=== PATIENT | male | born 1950 | race Caucasian/White ===

== ENCOUNTER → 2024-08-07 | Outpatient (CLI) | payer MEDICARE ==
--- NOTE | 2024-08-07 22:09 | MR ---
EXAMINATION TYPE: MR Prostate wo/w con DATE OF EXAM: 08/07/2024 9:58 AM COMPARISON: None. CLINICAL INDICATION: Male, 74 years old with history of R97.20 ELEVATED PSA; Elevated PSA TECHNIQUE: Multi-planar, multi-sequence imaging of the pelvis is performed prior to and following the uncomplicated administration of bolus intravenous gadolinium. IV Contrast: 8 mL Gadobutrol Interpretive Criteria: PI-RADS v2.1 SERUM PSA: =9.88, =10.60 SURGICAL PATHOLOGY: No data available. FINDINGS: Prostatic dimensions: 4.9 x 5.6 x 3.4 cm. "Bullet" Volume:61.06 (PSA density=0.17 ng/mL/mL) CENTRAL GLAND (Central and Transition Zones/CZ+TZ): Multiple bilateral, heterogenous appearing hypertrophic stromal nodules, without suspicious lesion. M edian lobe hypertrophy with protrusion into the base of the bladder. (PI-RADS 2) PERIPHERAL ZONE (PZ): Low T2 signal lesion series 501 image 17 measuring 6 mm with some increased vascularity, the DWI sign al may be fractionally higher signal compared to the surrounding tissue with low ADC signal. Noted (P I-RADS 3) SEMINAL VESICLES (SV): Symmetric and unremarkable. PERIPROSTATIC TISSUES: Unremarkable. LYMPH NODES: No enlarged pelvic lymph node. REMAINING PELVIS: Bladder wall is within normal limits given distention. No abnormal free or organized intrapelvic fluid collection. No pathologic bowel dilation or mural thickening. No hernia visualized OSSEOUS STRUCTURES: No suspicious osseous abnormality. IMPRESSION: 1. PI-RADS 3 lesion left peripheral zone mid gland/apex posteriorly measuring 6 mm. Tissue sampling r ecommended. 2. Moderate BPH, estimated gland volume 61.06 mL. 3. No suspicious osseous lesion. No lymphadenopathy. No evidence of prostate adenocarcinoma involving the periprostatic tissues. [facility], , 08/07/2024 10:07 PM
== END | disposition home or self-care (01) ==
LOC: RADMRIMAIN 08:26
PROVIDERS: ATTEND Urology
DX: N40.0 Benign prostatic hyperplasia without lower urinary tract symptoms (principal); R97.20 Elevated prostate specific antigen [PSA]
CPT/HCPCS: 72197; A9585

== ENCOUNTER → 2024-09-13 | Outpatient (CLI) | payer MEDICARE ==
[2024-09-13 15:13] LABS: Basophils # (A) 0.09 X 10*3/uL (0.00-0.10); Basophils % (A) 1.3 %; Eosinophils # (A) 0.22 X 10*3/uL (0.04-0.35); Eosinophils % (A) 3.1 %; HCT 37.7 % (39.6-50.0); HGB 13.3 g/dL (13.0-17.0); Lymphocytes # (A) 0.94 X 10*3/uL (0.90-5.00); Lymphocytes % (A) 13.2 %; MCH 31.1 pg (27.0-32.0); MCHC 35.3 g/dL (32.0-37.0); MCV 88.1 FL (80.0-97.0); Mean Platelet Volume 8.8 FL (9.5-12.2); Monocytes # (A) 0.69 X 10*3/uL (0.20-1.00); Monocytes % (A) 9.7 %; NRBC Per 100 WBC 0 X 10*3/uL (0.00-0.01); Neutrophils # (A) 5.15 X 10*3/uL (1.80-7.70); Neutrophils % (A) 72.1 %; Platelet Count 233 X 10*3/uL (140-440); RBC 4.28 X 10*6/uL (4.40-5.60); RDW 11.9 % (11.5-14.5); WBC 7.13 X 10*3/uL (4.50-10.00)
[2024-09-13 15:27] LABS: BUN/Creat Ratio 17.67 Ratio (12.00-20.00); Blood Urea Nitrogen 10.6 mg/dL (9.0-27.0); Calcium 9.4 mg/dL (8.7-10.3); Carbon Dioxide 27.5 mmol/L (21.6-31.8); Chloride 96 mmol/L (96-109); Glucose 295 mg/dL (70-110); Potassium 4.2 mmol/L (3.5-5.5); Sodium 135 mmol/L (135-145)
[2024-09-13 17:47] LABS: Appearance,Urine Clear (Clear); Bilirubin,Urine Negative (Negative); Blood,Urine Negative (Negative); Color,Urine Dark Yellow (Yellow); Ketones,Urine Negative (Negative); Nitrite,Urine Negative (Negative); Specific Gravity,Urine 1.027 (1.001-1.030)
== END | disposition home or self-care (01) ==
LOC: LABWHC1 09:10
PROVIDERS: ATTEND Urology
DX: Z01.812 Encounter for preprocedural laboratory examination (principal); N40.1 Benign prostatic hyperplasia with lower urinary tract symptoms; R97.20 Elevated prostate specific antigen [PSA]
CPT/HCPCS: 80048; 81003; 85025; 87086

== ENCOUNTER → 2024-11-14 | Outpatient (CLI) | payer MEDICARE ==
[2024-11-14 11:56] LABS: Appearance,Urine Clear (Clear); Bilirubin,Urine Negative (Negative); Blood,Urine Negative (Negative); Color,Urine Yellow; Glucose,Urine (UA) 3+ (Negative); Ketones,Urine Negative (Negative); Leukocyte Esterase,Urine Negative (Negative); Nitrite,Urine Negative (Negative); PH, Urine 7.5 (5.0-8.0); Protein,Urine Trace (Negative); Specific Gravity,Urine 1.017 (1.001-1.035); Urobilinogen,Urine <2.0 mg/dL (<2.0)
[2024-11-14 14:55] LABS: Basophils # (A) 0.04 X 10*3/uL (0.00-0.10); Basophils % (A) 0.5 %; Eosinophils # (A) 0.12 X 10*3/uL (0.04-0.35); Eosinophils % (A) 1.5 %; HCT 39.8 % (39.6-50.0); Lymphocytes % (A) 11.2 %; MCH 31.4 pg (27.0-32.0); MCHC 35.2 g/dL (32.0-37.0); MCV 89.2 FL (80.0-97.0); Mean Platelet Volume 8.8 FL (9.5-12.2); Monocytes # (A) 0.82 X 10*3/uL (0.20-1.00); Monocytes % (A) 10.2 %; NRBC Per 100 WBC 0 X 10*3/uL (0.00-0.01); Neutrophils # (A) 6.15 X 10*3/uL (1.80-7.70); Neutrophils % (A) 76.2 %; Platelet Count 262 X 10*3/uL (140-440); RBC 4.46 X 10*6/uL (4.40-5.60); RDW 11.6 % (11.5-14.5); WBC 8.06 X 10*3/uL (4.50-10.00)
[2024-11-14 18:47] LABS: BUN/Creat Ratio 17.17 Ratio (12.00-20.00); Blood Urea Nitrogen 10.3 mg/dL (9.0-27.0); Calcium 9.9 mg/dL (8.7-10.3); Carbon Dioxide 30.2 mmol/L (21.6-31.8); Chloride 93 mmol/L (96-109); Glucose 188 mg/dL (70-110); Potassium 4.7 mmol/L (3.5-5.5); Sodium 133 mmol/L (135-145)
== END | disposition home or self-care (01) ==
LOC: LABWHC1 10:32
PROVIDERS: ATTEND Urology
DX: Z01.812 Encounter for preprocedural laboratory examination (principal); R97.20 Elevated prostate specific antigen [PSA]
CPT/HCPCS: 36415; 80048; 81003; 85025; 87086

== ENCOUNTER 2024-11-19 11:12 | Day surgery (SDC) | payer MEDICARE ==
[2024-11-15 14:38] VITALS: BMI 28.8
--- NOTE | 2024-11-18 07:49 | P.HPIHPCON ---
History of Present Illness H&P Date: 11/18/24 Chief Complaint: Elevated PSA, microscopic hematuria This is a 74-year-old male with history of elevated PSA at 10.6, MRI showed evidence of a PI-RADS 3 lesion along the left apex. Discussed with him given this finding I do recommend proceeding with an MRI fusion biopsy of the prostate. Of note also he has evidence of microscopic hematuria, discussed we will do a flexible cystoscopy at the same setting aware of the risk which includes but not limited to bleeding, and infection. He understood all the risk and agreed to proceed Consent for Procedure: I have explained the operation/procedure to the patient, including the risks, benefits, side effects, alternative therapies (including not receiving the proposed treatment or service), the likelihood of the patient achieving his/her goals, and potential recuperation problems for the procedure/sedation/analgesia, as well as any blood products, if indicated. I also explained to the patient the risks, benefits and side effects of the alternatives, as well as the risks related to not receiving the proposed procedure, care, treatment, or services. Past Medical History Past Medical History: Cancer, Diabetes Mellitus, Hyperlipidemia, Hypertension Additional Past Medical History / Comment(s): Hx skin cancer. "Spot on prostate." History of Any Multi-Drug Resistant Organisms: None Reported Additional Past Surgical History / Comment(s): Bilateral cataract surgery, colonoscopy. Past Anesthesia/Blood Transfusion Reactions: No Reported Reaction Additional Past Anesthesia/Blood Transfusion Reaction / Comment(s): PONV with colonoscopy once. Past Psychological History: No Psychological Hx Reported Smoking Status: Never smoker Past Alcohol Use History: Rare Past Drug Use History: None Reported Medications and Allergies Home Medications Medication Instructions Recorded Confirmed Type Atorvastatin [Lipitor] 20 mg PO DAILY 11/15/24 11/15/24 History Escitalopram [Lexapro] 20 mg PO QAM 11/15/24 11/15/24 History Insulin Glargine,Hum.rec.anlog 40 unit SQ QAM 11/15/24 11/15/24 History [Basaglar Kwikpen U-100] Lisinopril-Hctz 20-12.5 mg 1 tab PO QAM 11/15/24 11/15/24 History [Zestoretic 20-12.5] Semaglutide [Ozempic] 2 mg SQ BARRIOS 11/15/24 11/15/24 History metFORMIN HCL 500 mg PO TID 11/15/24 11/15/24 History Allergies Allergy/AdvReac Type Severity Reaction Status Date / Time No Known Allergies Allergy Verified 11/15/24 11:09 Surgical - Exam - General no distress, no pain - Eyes normal ocular movement, no pale - ENT normal nares, normal mucosa - Respiratory normal expansion, normal respiratory effort - Abdomen Abdomen: soft, non tender - Psychiatric oriented to time, oriented to person, oriented to place, speech is normal Assessment and Plan Assessment: OR for MRI fusion biopsy of the prostate, cystoscopy
[~2024-11-19 11:12] MED LIST: LACTATED RINGERS 1,000 ML IV SCH
[2024-11-19] MEDS: IV FLUID CONTINUATION 1,000 ML IV ONE (13:30)
[2024-11-19] MEDS: GENTAMICIN 40 MG/ML 2 ML VIAL IM PRN (13:31)
[2024-11-19 13:33] LABS: Glucose,Whole Blood 141 mg/dL (70-110)
[2024-11-19] MEDS: ONDANSETRON 4 MG/2 ML VIAL IVP STA (13:45)
[2024-11-19] MEDS ORDERED: MIDAZOLAM 2 MG/2 ML VIAL ONE (14:24)
[2024-11-19] MEDS ORDERED: GLYCOPYRROLATE 0.2 MG/ML 2 ML VIAL ONE (14:24)
[2024-11-19] MEDS ORDERED: DEXAMETHASONE SOD PHOSPHATE 4 MG/ML 1 ML VIAL ONE (14:24)
[2024-11-19] MEDS ORDERED: PROPOFOL 10 MG/ML 20 ML VIAL IV ONE (14:24)
[2024-11-19] MEDS ORDERED: LIDOCAINE 1% INJ 10MG/ML (20 ML MDV) ONE (14:24)
[2024-11-19] MEDS ORDERED: KETAMINE HCL IN 0.9 % NACL 50 MG/5 ML SYRINGE ONE (14:24)
[2024-11-19 15:23] VITALS: TEMP 97.2
[2024-11-19 15:53] VITALS: RESP 16
[2024-11-19 16:06] VITALS: BP 160/83; PULSE 82
--- NOTE | 2024-11-19 16:47 | P.OP ---
Date of Procedure: 11/19/24 Preoperative Diagnosis: Elevated PSA, microscopic hematuria Postoperative Diagnosis: Same Procedure(s) Performed: MRI fusion biopsy of the prostate, cystoscopy Implants: None Anesthesia: MAC Surgeon: Chris Cochran Estimated Blood Loss (ml): 1 Pathology: other (Prostate biopsies) Condition: stable Disposition: PACU Indications for Procedure: This is a 74-year-old male with history of elevated PSA at 10.6, MRI showed evidence of a PI-RADS 3 lesion along the left apex. Discussed with him given this finding I do recommend proceeding with an MRI fusion biopsy of the prostate. Of note also he has evidence of microscopic hematuria, discussed we will do a flexible cystoscopy at the same setting aware of the risk which includes but not limited to bleeding, and infection. He understood all the risk and agreed to proceed Operative Findings: Normal cysto Description of Procedure: The patient was taken to the operating room and placed in the left lateral decubitus position. The [employer] transrectal ultrasound probe was placed intrarectally. It was then placed within the stand of the [employer] MRI/TRUS Fusion for Prostate Biopsy system. The prostate was imaged in both the axial and sagittal planes. Using the Biopsy gun, 4 biopsies were obtained from the target lesion, there were was one lesions, . The remaining 12 biopsies of the peripheral zone were obtained utilizing a standard template. Once the procedure was completed, the ultrasound probe was removed. Next attention was carried to the flexible cystoscope. The patient was placed in a supine position. Penis was prepped and draped in sterile fashion. Next a flexible cystoscope was inserted per urethra, cystoscopy was performed showed no abnormality within the bladder. Patient's prostate was mildly enlarged but nonocclusive. There was no abnormality along the prostatic urethra or within the urethra. The patient tolerated the procedure well was taken to the recovery room stable condition.
== END 2024-11-19 16:23 | disposition home or self-care (01) ==
LOC: OR 11:12
PROVIDERS: ATTEND Urology
DX: C61 Malignant neoplasm of prostate (principal); N40.1 Benign prostatic hyperplasia with lower urinary tract symptoms; R31.29 Other microscopic hematuria; E11.9 Type 2 diabetes mellitus without complications; E78.5 Hyperlipidemia, unspecified; I10 Essential (primary) hypertension; Z79.84 Long term (current) use of oral hypoglycemic drugs
CPT/HCPCS: 88305; 52000; 55700; J2250; J1580; J1100; J2405; J2003; J2704; J1596

== ENCOUNTER → 2024-12-31 | Outpatient (CLI) | payer MEDICARE ==
[2024-12-31 14:46] LABS: Basophils # (A) 0.04 X 10*3/uL (0.00-0.10); Basophils % (A) 0.7 %; Eosinophils % (A) 3.4 %; HCT 37.6 % (39.6-50.0); Lymphocytes # (A) 0.72 X 10*3/uL (0.90-5.00); Lymphocytes % (A) 12.1 %; MCHC 34.6 g/dL (32.0-37.0); MCV 89.5 FL (80.0-97.0); Mean Platelet Volume 8.8 FL (9.5-12.2); Monocytes # (A) 0.63 X 10*3/uL (0.20-1.00); Monocytes % (A) 10.6 %; NRBC Per 100 WBC 0 X 10*3/uL (0.00-0.01); Neutrophils # (A) 4.32 X 10*3/uL (1.80-7.70); Neutrophils % (A) 72.7 %; Platelet Count 239 X 10*3/uL (140-440); RDW 11.9 % (11.5-14.5); WBC 5.94 X 10*3/uL (4.50-10.00)
[2024-12-31 15:41] LABS: BUN/Creat Ratio 16.83 Ratio (12.00-20.00); Blood Urea Nitrogen 10.1 mg/dL (9.0-27.0); Calcium 9.1 mg/dL (8.7-10.3); Carbon Dioxide 25.4 mmol/L (21.6-31.8); Chloride 95 mmol/L (96-109); Glucose 276 mg/dL (70-110); Potassium 4.1 mmol/L (3.5-5.5); Sodium 133 mmol/L (135-145)
[2024-12-31 16:29] LABS: Appearance,Urine Clear (Clear); Bilirubin,Urine Negative (Negative); Blood,Urine Negative (Negative); Color,Urine Dark Yellow (Yellow); Ketones,Urine Negative (Negative); Nitrite,Urine Negative (Negative)
== END | disposition home or self-care (01) ==
LOC: LABWHC1 09:10
PROVIDERS: ATTEND Urology
DX: Z01.812 Encounter for preprocedural laboratory examination (principal); C61 Malignant neoplasm of prostate
CPT/HCPCS: 36415; 80048; 81003; 85025

== ENCOUNTER 2025-01-02 06:48 | Day surgery (SDC) | payer MEDICARE ==
--- NOTE | 2024-12-31 17:14 | P.HPIHPCON ---
History of Present Illness H&P Date: 12/31/24 Chief Complaint: prostate cancer This is a 74-year-old male with history of [place] 7(3+4) prostate cancer. Of note patient also has evidence of incomplete bladder emptying, and storage symptoms with significant urgency. Underwent urodynamic which showed evidence of incomplete bladder emptying, with multiple uninhibited detrusor contraction with incontinence. Of note he also had evidence of diminished flow but there was adequate detrusor function. MRI showed evidence of an enlarged prostate with enlarged median lobe with intravesical extension. Discussed with him his bladder pathology is most likely secondary to his enlarged prostate complicated by his diabetes history. Option of radiation therapy versus robotic radical prostatectomy was discussed with him in details. Risk and benefit of each approach were discussed. Discussed with robotic prostatectomy might address his urinary symptoms and his prostate cancer, but did discuss he might require additional treatments for his storage symptoms postoperatively. Alternative of radiation was also discussed. He agreed to proceed with a robotic radical prostatectomy, he is aware of the risk which include but not limited to bleeding, infection, erectile dysfunction, urinary incontinence, injury to nearb y organs. Risk of cancer recurrence and need for additional treatments was discussed. Discussed given his finding on urodynamics with the potential that he may need additional therapy to address his bladder. He understood all the risk and agreed to proceed Consent for Procedure: I have explained the operation/procedure to the patient, including the risks, benefits, side effects, alternative therapies (including not receiving the proposed treatment or service), the likelihood of the patient achieving his/her goals, and potential recuperation problems for the procedure/sedation/analgesia, as well as any blood products, if indicated. I also explained to the patient the risks, benefits and side effects of the alternatives, as well as the risks related to not receiving the proposed procedure, care, treatment, or services. Past Medical History Past Medical History: Cancer, Diabetes Mellitus, Hyperlipidemia, Hypertension Additional Past Medical History / Comment(s): Hx skin cancer. "Spot on prostate." History of Any Multi-Drug Resistant Organisms: None Reported Additional Past Surgical History / Comment(s): Bilateral cataract surgery, colonoscopy. Past Anesthesia/Blood Transfusion Reactions: No Reported Reaction Additional Past Anesthesia/Blood Transfusion Reaction / Comment(s): PONV with colonoscopy once. Past Psychological History: No Psychological Hx Reported Smoking Status: Never smoker Past Alcohol Use History: Rare Past Drug Use History: None Reported Medications and Allergies Home Medications Medication Instructions Recorded Confirmed Type Atorvastatin [Lipitor] 20 mg PO DAILY 11/15/24 11/19/24 History Escitalopram [Lexapro] 20 mg PO QAM 11/15/24 11/19/24 History Insulin Glargine,Hum.rec.anlog 40 unit SQ QAM 11/15/24 11/19/24 History [Basaglar Kwikpen U-100] Lisinopril-Hctz 20-12.5 mg 1 tab PO QAM 11/15/24 11/19/24 History [Zestoretic 20-12.5] Semaglutide [Ozempic] 2 mg SQ BARRIOS 11/15/24 11/19/24 History metFORMIN HCL 500 mg PO TID 11/15/24 11/19/24 History Aspirin 81 mg PO DAILY 11/19/24 11/19/24 History Allergies Allergy/AdvReac Type Severity Reaction Status Date / Time No Known Allergies Allergy Verified 11/19/24 13:06 Surgical - Exam - General no distress, no pain - Eyes normal ocular movement, no pale - ENT normal nares, normal mucosa - Respiratory normal expansion, normal respiratory effort - Abdomen Abdomen: soft, non tender - Psychiatric oriented to time, oriented to person, oriented to place Assessment and Plan Assessment: OR for robotic radical prostatectomy with bilateral pelvic lymph node dissection
[2025-01-02] MEDS ORDERED: HYDROmorphone 0.5 MG/0.5 ML SYRINGE IVP PRN (07:00)
[2025-01-02] MEDS: IV FLUID CONTINUATION 1,000 ML IV ONE ×2 (07:17→08:40)
[2025-01-02 08:07] LABS: Glucose,Whole Blood 125 mg/dL (70-110)
[2025-01-02] MEDS: fentaNYL (PF) 50 MCG/ML 2 ML AMP IVP STA (08:21)
[2025-01-02] MEDS: MIDAZOLAM 2 MG/2 ML VIAL IV ONE (08:21)
[2025-01-02] MEDS: LACTATED RINGERS 1,000 ML IV SCH (08:36)
[2025-01-02] MEDS: ONDANSETRON 4 MG/2 ML VIAL IVP ONE (08:37)
[2025-01-02] MEDS: DEXAMETHASONE SOD PHOSPHATE 4 MG/ML 1 ML VIAL IV ONE (08:37)
[2025-01-02] MEDS: HEPARIN SODIUM,PORCINE 5,000 UNIT/ML 1 ML VIAL SQ PRN (08:39)
[2025-01-02] MEDS: LACTATED RINGERS 1,000 ML IV ONE ×2 (08:40→11:05)
--- NOTE | 2025-01-02 08:55 | P.ANPRN ---
Procedure Note - Anesthesia - Nerve Block Performed Bilateral Erector Spinae Single Time Out Performed: Yes ([id number]) Date of Procedure: 01/02/25 Procedure Start Time: : Procedure Stop Time: : Location of Patient: PreOp Indication: Acute Post-Operative Pain, Requested by Surgeon Specifically requested for management of pain by : Chris Cochran Sedation Type: Sedate with meaningful contact maintained Preparation: Sterile Prep Position: Sitting Catheter: None Needle Types: Pajunk Needle Gauge: 21 Ultrasound used to visualize needle placement: Yes Ultrasound used to observe medication spread: Yes Injectate: 0.5% Ropivacaine (see comment for volume) (15cc+10cc nacl pf+decadron 4mg each side) Blood Aspirated: No Pain Paresthesia on Injection Noted: No Resistance on Injection: Normal Image Stored and Saved: Yes Events: Uneventful and Well Tolerated
[2025-01-02] MEDS ORDERED: ONDANSETRON 4 MG/2 ML VIAL IVP PRN (09:27)
[2025-01-02] MEDS ORDERED: HYDROmorphone 1 MG/ML 1 ML SYRINGE IVP PRN (09:27)
[2025-01-02] MEDS ORDERED: NEOSTIGMINE 1 MG/ML 10 ML VIAL ONE (09:28)
[2025-01-02] MEDS ORDERED: SODIUM CHLORIDE 0.9% (PF) 10 ML VIAL ONE (09:28)
[2025-01-02] MEDS ORDERED: SUCCINYLCHOLINE CHLORIDE 200 MG/10 ML VIAL IV ONE (09:28)
[2025-01-02] MEDS ORDERED: PROPOFOL 10 MG/ML 20 ML VIAL IV ONE (09:28)
[2025-01-02] MEDS ORDERED: fentaNYL (PF) 50 MCG/ML 2 ML AMP ONE (09:28)
[2025-01-02] MEDS ORDERED: GLYCOPYRROLATE 0.2 MG/ML 2 ML VIAL ONE (09:28)
[2025-01-02] MEDS ORDERED: ePHEDrine 50 MG/ML 1 ML VIAL ONE (09:28)
[2025-01-02] MEDS ORDERED: DEXAMETHASONE SOD PHOSPHATE 4 MG/ML 1 ML VIAL ONE (09:28)
[2025-01-02] MEDS ORDERED: LIDOCAINE 1% INJ 10MG/ML (20 ML MDV) ONE (09:28)
[2025-01-02] MEDS ORDERED: hydrALAZINE HCL 20 MG/ML 1 ML VIAL ONE (09:28)
[2025-01-02] MEDS ORDERED: MIDAZOLAM 2 MG/2 ML VIAL ONE (09:28)
[2025-01-02] MEDS ORDERED: INSULIN REGULAR 100 UNIT/ML VIAL (IV) ONE (09:28)
[2025-01-02] MEDS ORDERED: ROPIVACAINE 5 MG/ML 30 ML VIAL ONE (09:28)
[2025-01-02] MEDS ORDERED: ROCURONIUM 10 MG/ML (5 ML VIAL) IV ONE (09:28)
[2025-01-02] MEDS ORDERED: HYDROmorphone (PF) 1 MG/ML ONE (09:28)
[2025-01-02] MEDS ORDERED: HYDROcodone/APAP 5-325MG 1 EACH TAB PO PRN (09:30)
[2025-01-02] MEDS: ceFAZolin 2 GM in DEXTROSE 5% IN WATER 50 ML IVPB PRN (09:31)
[2025-01-02] MEDS: BUPIVACAINE (PF) 0.25% 30 ML VIAL SQ ONE (09:57)
[2025-01-02 12:58] LABS: Glucose,Whole Blood 230 mg/dL (70-110)
[2025-01-02 14:27] LABS: Glucose,Whole Blood 210 mg/dL (70-110)
--- NOTE | 2025-01-02 14:41 | P.OP ---
Date of Procedure: 01/02/25 Preoperative Diagnosis: Prostate cancer Postoperative Diagnosis: Same Procedure(s) Performed: Robotic radical prostatectomy with bilateral pelvic lymph node dissection Implants: none Anesthesia: LIVIAA Surgeon: Chris Cochran Estimated Blood Loss (ml): 100 Pathology: other (Prostate, bilateral seminal vesicle, bilateral pelvic lymph node, left base margin) Condition: stable Disposition: PACU Indications for Procedure: This is a 74-year-old male with history of [place] 7(3+4) prostate cancer. Of note patient also has evidence of incomplete bladder emptying, and storage symptoms with significant urgency. Underwent urodynamic which showed evidence o f incomplete bladder emptying, with multiple uninhibited detrusor contraction with incontinence. Of note he also had evidence of diminished flow but there was adequate detrusor function. MRI showed evidence of an enlarged prostate with enlarged median lobe with intravesical extension. Discussed with him his bladder pathology is most likely secondary to his enlarged prostate complicated by his diabetes history. Option of radiation therapy versus robotic radical prostatectomy was discussed with him in details. Risk and benefit of each approach were discussed. Discussed with robotic prostatectomy might address his urinary symptoms and his prostate cancer, but did discuss he might require additional treatments for his storage symptoms postoperatively. Alternative of radiation was also discussed. He agreed to proceed with a robotic radical prostatectomy, he is aware of the risk which include but not limited to bleeding, infection, erectile dysfunction, urinary incontinence, injury to nearby organs. Risk of cancer recurrence and need for additional treatments was discussed. Discussed given his finding on urodynamics with the potential that he may need additional therapy to address his bladder. He understood all the risk and agreed to proceed Description of Procedure: After preoperative antibiotics were started, the patient was taken to the operating room. Anesthesia was induced and the patient was placed in a supine position, with adequate padding of the pressure points, shoulders, back, legs and arms. He was then prepped and draped in the standard fashion. A critical pause was performed using two patient identifiers. A 16F rodrigez catheter was placed to gravity drainage. A pneumo-peritoneum was created with placement of a Veress needle to 20 mm Hg without complication, and a 8 Fr trocar was placed above the umbillicus. Under direct vision a 8mm robotic ports was placed lateral to each rectus slightly below the camera port. The left iliac fossa 8mm port was placed. The right investigative assistant right iliac fossa 12mm port and right paramedian 5mm portwere placed. After the patient was placed in the trendelenberg position, the robot was then docked to the 8mm robotic ports and then each robotic arm and tower was checked in relation to the patient's legs and hands to avoid inadvertent compression. The peritoneal cavity was inspected. An inverted U-shaped incision began laterally to the left medial umbilical ligament and extended high across the midline to the right umbilical ligament. The limbs of the "U" extended to the level of the vasa on both sides. We next developed the preperitoneal space and the space of Retzius. Cautery was used to dissected the bladder away from the prostate. After the anterior bladder neck was incised and the bladder entered the the posterior bladder neck was exposed and the ureteral orifces identified. The posterior bladder neck was then incised and dissected away from the prostate. The vas and the seminal vesicles were now exposed and dissected to their insertions into the prostate and were not spared. The posterior layer of the Denonvillier's fascia was incised to enter don the plane between prostate and perirectal fat. Each lateral pedicle was controlled with vessel sealer, no nerve preservation was performed. The puboprostatic ligament was incised where it inserted into the apex of the prostate and a plane between urethra and dorsal venous complex developed to expose the anterior urethral surface. The anterior wall of the urethra was transected with the cut setting a few millimeters distal to the apex of the prostate. The dorsal vein was ligated using 3-0 V lock bilateral obturator and external iliac lymph node packets were carefully dissected after careful visualization of the hypogastric artery and obturator nerve. There was careful attention paid to hemostasis with judicious use of cautery. The urethrovesical anastomosis was performed . the posterior denovillers was reapproximated using 3-0 V lock. A 6 and 6 inch 3-0 V-Lock suture was used to anastomose the urethra and bladder, starting at the 6:00 posterior position. Mucosa was secured in every stitch, to ensure a mucosa to mucosa anastomosis. The stitch was regularly cinched and the anastomosis tightened. Care was taken to not violate the ureteral orifices. The Rodrigez catheter was advanced, the bladder filled, and the anastomosis was tested, as described above. Anastomsis was watertight at 150 mL The periumbilical fascia was closed with 1-0-PDS suture in figure of eight fashion. All ports were closed with a subcuticular 4-0 monocryl and Dermabond. Sponge, instrument, and needle counts were correct at the end of the case x2. All specimens including prostate and lymph nodes were sent to pathology for diagnosis and will be available in a week. The patient tolerated the surgery well and without complication. He awoke without difficulty and was taken to the recovery room in stable condition
[2025-01-02] MEDS: metFORMIN 500 MG TAB PO SCH (16:13)
[2025-01-02] MEDS: SODIUM CHLORIDE 0.9% 1,000 ML IV SCH (16:13)
[2025-01-02] MEDS: KETOROLAC 15 MG/ML 1 ML VIAL IVP SCH (16:13)
[2025-01-02 16:45] LABS: Glucose,Whole Blood 198 mg/dL (70-110)
[2025-01-02 20:21] LABS: Glucose,Whole Blood 247 mg/dL (70-110)
[2025-01-02] MEDS: MELATONIN 5 MG TABLET PO PRN (21:24)
[2025-01-02] MEDS: LISINOPRIL-HCTZ 20-12.5 MG 1 EACH TAB PO SCH (21:24)
[2025-01-03 01:37] VITALS: TEMP 98.2
[2025-01-03 06:20] LABS: Glucose,Whole Blood 157 mg/dL (70-110)
[2025-01-03] MEDS: INSULIN GLARGINE (LANTUS) 100 UNIT/ML SYR SQ SCH (06:42)
[2025-01-03 07:20] VITALS: BP 122/63; PULSE 74; RESP 15
--- NOTE | 2025-01-03 07:23 | P.DS ---
Providers Attending physician: Chris Cochran MD Primary care physician: Jeni Raya [facility] Course: 74 yo male who underwent a RALP by Dr Cochran yesterday without issues. He did well overnight. His urine is clear. His is not having notable pain. His VSS. He will be d/cd home. He will go home with the catheter. He will fu with Dr Cochran in about 1 week. His condition is good. Patient Condition at Discharge: Good Plan - Discharge Summary Discharge Rx Participant: Yes New Discharge Prescriptions: New HYDROcodone/APAP 5-325MG [[place] 5-325] 1 tab PO Q4HR PRN #10 tab PRN Reason: Pain No Action metFORMIN HCL 500 mg PO TID Insulin Glargine,Hum.rec.anlog [Basaglar Kwikpen U-100] 40 unit SQ QAM Lisinopril-Hctz 20-12.5 mg [Zestoretic 20-12.5] 1 tab PO BID Escitalopram [Lexapro] 20 mg PO QAM Atorvastatin [Lipitor] 20 mg PO DAILY Semaglutide [Ozempic] 2 mg SQ BARRIOS Aspirin 81 mg PO DAILY Discharge Medication List Atorvastatin [Lipitor] 20 mg PO DAILY 11/15/24 [History] Escitalopram [Lexapro] 20 mg PO QAM 11/15/24 [History] Insulin Glargine,Hum.rec.anlog [Basaglar Kwikpen U-100] 40 unit SQ QAM 11/15/24 [History] Lisinopril-Hctz 20-12.5 mg [Zestoretic 20-12.5] 1 tab PO BID 11/15/24 [History] Semaglutide [Ozempic] 2 mg SQ BARRIOS 11/15/24 [History] metFORMIN HCL 500 mg PO TID 11/15/24 [History] Aspirin 81 mg PO DAILY 11/19/24 [History] HYDROcodone/APAP 5-325MG [[place] 5-325] 1 tab PO Q4HR PRN #10 tab 01/03/25 [Rx] Follow up Appointment(s)/Referral(s): Chris Cochran MD [STAFF PHYSICIAN] - 1 Week Discharge Disposition: HOME SELF-CARE
[2025-01-03] MEDS: ATORVASTATIN 20 MG TAB PO SCH (08:18)
[2025-01-03] MEDS: ESCITALOPRAM 20 MG TAB PO SCH (08:18)
== END 2025-01-03 11:36 | disposition home or self-care (01) ==
LOC: OR 06:48 → 4SSUR 14:36 → OR 01-03 11:36
PROVIDERS: ATTEND Urology
DX: C61 Malignant neoplasm of prostate (principal); G89.18 Other acute postprocedural pain; N40.1 Benign prostatic hyperplasia with lower urinary tract symptoms; N39.41 Urge incontinence; R39.14 Feeling of incomplete bladder emptying; I10 Essential (primary) hypertension; E11.9 Type 2 diabetes mellitus without complications; E78.5 Hyperlipidemia, unspecified; Z79.4 Long term (current) use of insulin; Z79.84 Long term (current) use of oral hypoglycemic drugs; Z79.82 Long term (current) use of aspirin; Z79.899 Other long term (current) drug therapy
CPT/HCPCS: 38570; 55866; S2900; 64468; 86850; 86900; 86901; 88305; 88307; 88309